=== PATIENT | female | born 1935 | race Caucasian/White ===

== ENCOUNTER → 2020-10-29 | Outpatient (CLI) | payer MEDICARE, BC ==
[~2020-10-29] MED LIST: COUMADIN6 MG PO; DIGOXIN125 MCG PO; DONEPEZIL HCL10 MG PO; DULCOLAX STOOL100 MG PO; K-DUR TAB 20 M20 MEQ PO; LINZESS145 MCG PO; LOPRESSOR 25 MG25 MG PO; NAMENDA XR21 MG PO; OMNICEF 300 MG300 MG PO; PRAVASTATIN SOD40 MG PO; ULTRAM50 MG PO; VITAMIN D400 UNI2 PO; WOMEN'S 50 PLU1 EACH PO
== END ==
LOC: EMI 10:00
DX: F01.50 Vascular dementia, unspecified severity, without behavioral disturbance, psychotic disturbance, mood disturbance, and anxiety (principal)
CPT/HCPCS: 70551

== ENCOUNTER 2020-11-17 23:35 | Emergency (ER) | payer MEDICARE, BC ==
[2020-11-18 01:15] LABS: HEMOGLOBIN 13.1 gm/dl (12.3-15.3); RED BLOOD COUNT 4.27 M/UL (4.00-5.10); WHITE BLOOD COUNT 7.7 K/UL (4.5-11.0)
[2020-11-18 01:24] LABS: BUN/CREATININE RATIO 15 (0-10)
== END 2020-11-18 03:54 | disposition home or self-care (01) ==
LOC: ER1 23:35
PROVIDERS: Family Medicine
DX: F03.90 Unspecified dementia, unspecified severity, without behavioral disturbance, psychotic disturbance, mood disturbance, and anxiety (principal); I48.91 Unspecified atrial fibrillation; R60.0 Localized edema; Z79.01 Long term (current) use of anticoagulants; Z79.899 Other long term (current) drug therapy; Z20.822 Contact with and (suspected) exposure to COVID-19
CPT/HCPCS: 36415; 71045; 80053; 81001; 82550; 82553; 82962; 83605; 83874; 84439; 84443; 84484; 85025; 85610; 86140; 93005; 99285; U0002